=== PATIENT | male | born 1985 | race Caucasian/White ===

== ENCOUNTER 2016-11-06 02:37 | Emergency (ER) | payer OTHER ==
[2016-11-06] MEDS ORDERED: TETANUS/DIPHTHERIA TOXOID ADULT 0.5 ML VIAL IM ONE (02:45)
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
[2016-11-06 02:50] VITALS: BP 137/81; PULSE 94; RESP 18; TEMP 97.9; O2SAT 98
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
== END 2016-11-06 04:17 | disposition home or self-care (01) ==
LOC: NEPB 02:37
DX: S01.01XA Laceration without foreign body of scalp, initial encounter (principal); S00.03XA Contusion of scalp, initial encounter; Z72.0 Tobacco use; Y04.2XXA Assault by strike against or bumped into by another person, initial encounter; Y93.89 Activity, other specified; Y92.89 Other specified places as the place of occurrence of the external cause; Y99.9 Unspecified external cause status
CPT/HCPCS: 12001; 70450; 90471; 90714